=== PATIENT | female | born 1960 | race Caucasian/White ===

== ENCOUNTER 2023-03-16 09:39 | Emergency (ER) | payer OTHER, MEDICAID ==
[~2023-03-16] VITALS: Ht 165.1 cm; Wt 60.4 kg
[~2023-03-16 09:39] MED LIST: BENZ1LOZ74 PO; GUAI400T92 PO; NO HOME MEDS; TAM75C PO; ZOLP5TAB2 PO
[2023-03-16] MEDS ORDERED: EMPA25TA PO (11:06)
[2023-03-16] MEDS ORDERED: BUPR-344 PO (11:06)
[2023-03-16] MEDS ORDERED: ROSU20TA73 PO (11:06)
[2023-03-16] MEDS ORDERED: GLIM4TAB7 PO (11:06)
[2023-03-16] MEDS ORDERED: LISI20TA28 PO (11:06)
[2023-03-16 11:14] VITALS: BP 152/86; PULSE 68; RESP 18; TEMP 98; O2SAT 99
== END 2023-03-16 11:19 | disposition home or self-care (01) ==
LOC: ER 09:39
DX: R42 Dizziness and giddiness (principal); I63.9 Cerebral infarction, unspecified; I10 Essential (primary) hypertension; E11.9 Type 2 diabetes mellitus without complications; Z88.0 Allergy status to penicillin; Z88.2 Allergy status to sulfonamides; Z88.5 Allergy status to narcotic agent; Z79.899 Other long term (current) drug therapy
CPT/HCPCS: 99283

== ENCOUNTER 2023-04-03 09:53 | Emergency (ER) | payer OTHER, MEDICAID ==
[~2023-04-03] VITALS: Ht 165.1 cm; Wt 59.9 kg
[~2023-04-03 09:53] MED LIST changes: +BUPR-344 PO; +EMPA25TA PO; +GLIM4TAB7 PO; +LISI20TA28 PO; +ROSU20TA73 PO
[2023-04-03] MEDS ORDERED: CHOL500049 PO (12:12)
[2023-04-03 12:21] VITALS: BP 130/62; PULSE 69; RESP 15; TEMP 97.9; O2SAT 100
== END 2023-04-03 12:24 | disposition home or self-care (01) ==
LOC: ER 09:54
DX: J06.9 Acute upper respiratory infection, unspecified (principal); Z20.822 Contact with and (suspected) exposure to COVID-19; J02.8 Acute pharyngitis due to other specified organisms; I10 Essential (primary) hypertension; E11.9 Type 2 diabetes mellitus without complications; Z88.0 Allergy status to penicillin; Z88.2 Allergy status to sulfonamides; Z88.5 Allergy status to narcotic agent; Z79.899 Other long term (current) drug therapy; Z87.891 Personal history of nicotine dependence
CPT/HCPCS: 36415; 87502; 87503; 87811; 99284

== ENCOUNTER 2023-06-27 13:37 | Emergency (ER) | payer OTHER, MEDICAID ==
[~2023-06-27] VITALS: Ht 165.1 cm; Wt 61.0 kg
[~2023-06-27 13:37] MED LIST changes: +CHOL500049 PO; -GLIM4TAB7 PO; -LISI20TA28 PO
[2023-06-27 14:10] VITALS: TEMP 97.4
[2023-06-27 15:28] VITALS: BP 140/80; PULSE 86; RESP 16; O2SAT 98
== END 2023-06-27 15:37 | disposition home or self-care (01) ==
LOC: ER 13:38
DX: B34.9 Viral infection, unspecified (principal); Z59.01 Sheltered homelessness; I10 Essential (primary) hypertension; E11.9 Type 2 diabetes mellitus without complications; Z88.0 Allergy status to penicillin; Z88.2 Allergy status to sulfonamides; Z88.8 Allergy status to other drugs, medicaments and biological substances
CPT/HCPCS: 71045; 87502; 87503; 99284; C1758

== ENCOUNTER 2023-10-07 08:12 | Emergency (ER) | payer OTHER, MEDICAID ==
[~2023-10-07] VITALS: Ht 165.1 cm; Wt 65.2 kg
[2023-10-07 08:19] VITALS: TEMP 97.9
[2023-10-07] MEDS ORDERED: ROSU20TA73 PO (09:42)
[2023-10-07] MEDS ORDERED: MELA10TA2 PO (09:42)
[2023-10-07] MEDS ORDERED: BUPR-564 PO (09:42)
[2023-10-07 09:55] VITALS: BP 146/71; PULSE 61; RESP 13; O2SAT 98
== END 2023-10-07 09:58 | disposition home or self-care (01) ==
LOC: ER 08:13
DX: E78.00 Pure hypercholesterolemia, unspecified (principal); I10 Essential (primary) hypertension; E11.9 Type 2 diabetes mellitus without complications; Z76.0 Encounter for issue of repeat prescription; Z88.0 Allergy status to penicillin; Z88.2 Allergy status to sulfonamides; Z88.8 Allergy status to other drugs, medicaments and biological substances; Z79.899 Other long term (current) drug therapy; Z72.89 Other problems related to lifestyle; Z59.00 Homelessness unspecified; Z56.0 Unemployment, unspecified
CPT/HCPCS: 99284

== ENCOUNTER 2023-11-28 18:54 | Emergency (ER) | payer OTHER, MEDICAID ==
[~2023-11-28] VITALS: Ht 165.1 cm; Wt 65.9 kg
[~2023-11-28 18:54] MED LIST changes: +BUPR-564 PO; +MELA10TA2 PO
[2023-11-28 19:12] VITALS: BP 169/100; PULSE 77; TEMP 97.9; O2SAT 96
[2023-11-28] MEDS ORDERED: TRIA15CR61 TOP (20:49)
[2023-11-28] MEDS ORDERED: CEPH-585 PO (20:49)
[2023-11-28] MEDS ORDERED: PRED20TA PO (20:49)
[2023-11-28] MEDS: famotidine 20mg tablet PO ONE (21:03)
[2023-11-28] MEDS: diphenhydrAMINE 50 mg/ml inj IM ONE (21:03)
[2023-11-28] MEDS: dexamethasone sod phosphate 10mg/ml inj PO STA (21:03)
[2023-11-28 21:08] VITALS: RESP 18
== END 2023-11-28 21:09 | disposition home or self-care (01) ==
LOC: ER 18:55
DX: L50.9 Urticaria, unspecified (principal); B08.1 Molluscum contagiosum; I10 Essential (primary) hypertension; E11.9 Type 2 diabetes mellitus without complications; Z88.0 Allergy status to penicillin; Z88.2 Allergy status to sulfonamides; Z88.5 Allergy status to narcotic agent; Z79.899 Other long term (current) drug therapy
CPT/HCPCS: 96372; 99283; J1100; J1200

== ENCOUNTER 2024-01-22 07:20 | Emergency (ER) | payer OTHER, MEDICAID ==
[~2024-01-22] VITALS: Ht 165.1 cm; Wt 64.8 kg
[~2024-01-22 07:20] MED LIST changes: -ROSU20TA73 PO; +ROSU20TA98 PO
[2024-01-22 07:28] VITALS: BP 159/96; PULSE 73; TEMP 97.6; O2SAT 99
[2024-01-22 07:45] VITALS: RESP 14
[2024-01-22] MEDS: ketorolac trometh 30MG/ML vial 30 MG/ML VIAL IM ONE (07:45)
== END 2024-01-22 07:48 | disposition home or self-care (01) ==
LOC: ER 07:21
DX: M54.12 Radiculopathy, cervical region (principal); M62.838 Other muscle spasm; E11.9 Type 2 diabetes mellitus without complications; I10 Essential (primary) hypertension; Z88.0 Allergy status to penicillin; Z88.2 Allergy status to sulfonamides; Z88.5 Allergy status to narcotic agent
CPT/HCPCS: 96372; 99283; J1885

== ENCOUNTER 2024-06-19 10:01 | Emergency (ER) | payer MEDICARE, MEDICAID ==
[~2024-06-19] VITALS: Ht 165.1 cm; Wt 61.5 kg
[~2024-06-19 10:01] MED LIST changes: +BUPR-480 PO; -BUPR-564 PO; +ZOLP-678 PO; -ZOLP5TAB2 PO
[2024-06-19 10:07] VITALS: TEMP 97.8
--- NOTE | 2024-06-19 11:14 | Physician Documentation ---
History of Present Illness ~ Chief Complaint: Toe pain Stated Complaint: INGROWN TOENAILS Time Seen by MD: 10:49 Primary Medical Doctor: love naylor HPI Of right toenail pain for the last several months parent. He thinks that she has a ingrown nail. Tetanus witin 5 years: Yes Medication Reconciliation Allergies: Coded Allergies: Penicillins (Verified Allergy, Unknown, 06/19/24) Sulfa (Sulfonamide Antibiotics) (Verified Allergy, Unknown, 06/19/24) codeine (Verified Allergy, Unknown, 06/19/24) Scheduled Benzocaine/Menthol (Cepacol Sore Throat Lozenge), 1 TAB PO Q4H Bupropion HCl (Bupropion Xl), 1 TAB PO DAILY, (Reported) Bupropion XL (Bupropion Xl), 1 TAB PO DAILY Cholecalciferol (Vitamin D3) (Vitamin D3), 1 CAP PO Q7D Empagliflozin (Jardiance), 1 TAB PO DAILY Guaifenesin (Guaifenesin), 1 TAB PO Q8H Melatonin (Melatonin), 1 TAB PO HS Oseltamivir Phosphate (Tamiflu), 75 MG PO BID Rosuvastatin Calcium (Rosuvastatin Calcium), 1 TAB PO HS Rosuvastatin Calcium (Rosuvastatin Calcium), 1 TAB PO HS Scheduled PRN Zolpidem Tartrate (Ambien), 5 MG PO HS PRN for sleep Miscellaneous Medications Home Med List (No Home Medications), (Reported) Past Medical History Past Medical History: Hypertension, Diabetes Past Surgical History: no surgical history Alcohol Use: Occasionally Drug Use: none Lives In: Homeless Occupation: unemployed Review of Systems All Other Systems at this time: Reviewed and Negative ROS As stated above in the HPI, otherwise all systems are reviewed and negative. Physical Exam Vital Signs: Temperature: 97.8, Source: Temporal, Heart Rate: 85, Respiratory Rate: 18, BP: 155/85, Pulse Oximetry: 98, Weight: 61.500 Physical Exam General: Alert, no apparent distress. Respiratory: Lungs clear, no respiratory distress. Extremities: Normal range of motion, no deformity. Right foot notable toe fungus on four out of the five toenails. Neurologic: Oriented x4. Psychiatric: Normal mood and affect. Skin: Normal color, warm and dry. No edema, no ecchymosis. Progress Results/Orders Results/Orders Vital Signs 06/19/24 06/19/24 06/19/24 10:07 11:24 11:25 Temp 97.8 Pulse 85 85 85 Resp 18 15 15 B/P (MAP) 155/85 155/85 (108) 155/85 Pulse Ox 98 98 98 Medical Decision Making Findings Patient presents with a clinical indications for onychomycosis. This is her to follow up with a allergy physician for further treatment. Did not present with any acute emergencies at this time. Departure Disposition: 01 HOME / SELF CARE / HOMELESS Impression: Primary Impression: Onychomycosis Condition: Stable Additional Instructions: Recommend seeing a local allergy physician to have ureter toe fungus treated. Referrals: NO PRIMARY CARE PROVIDER (PCP) Signature Scribe Signature: d Attestation: The note accurately reflects work and decisions made by me.Tin Andres NP 06/19/24 17:56 TIN QUIROZ NP June 19, 2024 11:14
[2024-06-19 11:25] VITALS: BP 155/85; PULSE 85; RESP 15; O2SAT 98
== END 2024-06-19 11:31 | disposition home or self-care (01) ==
LOC: ER 10:02
DX: B35.1 Tinea unguium (principal); E11.9 Type 2 diabetes mellitus without complications; I10 Essential (primary) hypertension; Z88.0 Allergy status to penicillin; Z88.2 Allergy status to sulfonamides; Z88.5 Allergy status to narcotic agent; Z88.8 Allergy status to other drugs, medicaments and biological substances
CPT/HCPCS: 99281

== ENCOUNTER 2024-08-15 09:59 | Emergency (ER) | payer MEDICARE, MEDICAID ==
[~2024-08-15] VITALS: Ht 165.1 cm; Wt 56.6 kg
[2024-08-15 10:01] VITALS: BP 156/81; PULSE 77; RESP 18; TEMP 97; O2SAT 97
[2024-08-15] MEDS ORDERED: HYDR-3686 PO (10:17)
--- NOTE | 2024-08-15 10:18 | Physician Documentation ---
HPI ~ General Chief Complaint: Medication Request Stated Complaint: MED REFILL Time Seen by MD: 10:07 OK to notify your PCP?: Yes Primary Medical Doctor: love naylor Source: patient Mode of Arrival: POV Exam Limitations: no limitations History of Present Illness HPI Comments This is a 64-year-old female who comes in requesting something to help her sleep. She states she has only slept six days since arriving to [place] which was several months ago. Aside from her request for a sleep aid she has not no other complaints Medication Reconciliation Allergies: Coded Allergies: Penicillins (Verified Allergy, Unknown, 06/19/24) codeine (Verified Allergy, Unknown, 06/19/24) Scheduled Benzocaine/Menthol (Cepacol Sore Throat Lozenge), 1 TAB PO Q4H Bupropion HCl (Bupropion Xl), 1 TAB PO DAILY, (Reported) Bupropion XL (Bupropion Xl), 1 TAB PO DAILY Cholecalciferol (Vitamin D3) (Vitamin D3), 1 CAP PO Q7D Empagliflozin (Jardiance), 1 TAB PO DAILY Guaifenesin (Guaifenesin), 1 TAB PO Q8H Melatonin (Melatonin), 1 TAB PO HS Oseltamivir Phosphate (Tamiflu), 75 MG PO BID Rosuvastatin Calcium (Rosuvastatin Calcium), 1 TAB PO HS Rosuvastatin Calcium (Rosuvastatin Calcium), 1 TAB PO HS Scheduled PRN Zolpidem Tartrate (Ambien), 5 MG PO HS PRN for sleep Miscellaneous Medications Home Med List (No Home Medications), (Reported) Past Medical History Past Medical History: Hypertension, Diabetes Past Surgical History: no surgical history Alcohol Use: Occasionally Drug Use: none Lives In: Homeless Occupation: unemployed Physical Exam Physical Exam Vital Signs: Temperature: 97.0, Source: Temporal, Heart Rate: 77, Respiratory Rate: 18, BP: 156/81, Pulse Oximetry: 97, Weight: 56.600 Pulse Oximetry Reflects: adequate oxygenation General Appearance: alert, WD/WN, no apparent distress Respiratory: no respiratory distress Chest: no accessory muscle use Neurologic: oriented x4, quality control lab tech II-XII nml as tested, memory intact, oriented to time, oriented to person, oriented to place, oriented to events Motor / Sensory: no motor deficit Thought/Hallucinations: normal thought pattern, no apparent hallucination Affect: anxious Skin: normal color Progress Results/Orders Results/Orders Vital Signs 08/15/24 10:01 Temp 97.0 Pulse 77 Resp 18 B/P (MAP) 156/81 Pulse Ox 97 Medical Decision Making Findings I told the patient I will give her Atarax which you can take 50 mg p.o. q.h.s.. Otherwise follow up with the with the primary care physician to the [facility] for further outpatient care. Additional Comment Insomnia. Highly suspect illicit stimulant use. Psychiatric issues. Departure Disposition: HOME / SELF CARE / HOMELESS Impression: Primary Impression: Insomnia Condition: Stable Discharge Instructions: Insomnia Additional Instructions: That has medications as prescribed. Stay away from food, substances or drinks that have stimulants. Follow up with the [facility]. Return for any acute issues Referrals: NO PRIMARY CARE PROVIDER (PCP) Prescriptions Hydroxyzine Hcl* (Atarax*) 25 Mg Tablet 2 TAB PO HS for insomnia, #30 TAB Prov: ESEQUIEL GARCIA 08/15/24 Signature Scribe Signature: No scribe Attestation: The note accurately reflects work and decisions made by me.Esequiel WASHBURN 08/15/24 10:17 ESEQUIEL GARCIA Aug 15, 2024 10:18
[2024-08-16] MEDS ORDERED: EMPA25TA PO (15:12)
== END 2024-08-15 10:28 | disposition home or self-care (01) ==
LOC: ER 10:01
DX: G47.00 Insomnia, unspecified (principal); E11.9 Type 2 diabetes mellitus without complications; I10 Essential (primary) hypertension; Z88.0 Allergy status to penicillin; Z88.5 Allergy status to narcotic agent; Z88.8 Allergy status to other drugs, medicaments and biological substances
CPT/HCPCS: 99283

== ENCOUNTER 2024-08-16 13:16 | Emergency (ER) | payer MEDICARE, MEDICAID ==
[~2024-08-16] VITALS: Ht 165.1 cm; Wt 65.9 kg
[~2024-08-16 13:16] MED LIST changes: +HYDR-3686 PO
[2024-08-16 13:21] VITALS: BP 140/83; PULSE 72; RESP 16; TEMP 98.6; O2SAT 99
[2024-08-16] MEDS ORDERED: EMPA25TA PO (15:12)
--- NOTE | 2024-08-16 15:14 | Physician Documentation ---
HPI ~ General Chief Complaint: Medication Refill Stated Complaint: MED REQUEST Time Seen by MD: 14:06 Primary Medical Doctor: love naylor Source: patient Mode of Arrival: POV Exam Limitations: no limitations History of Present Illness HPI Comments 64-year-old female who is here for a refill of her gabapentin as well as her Jardiance. She states she is currently taking 20-30 mg of gabapentin. She then states she is taking Jardiance 50 mg. Upon pulling an external medication list patient is on Jardiance 25 mg however has not had this filled in a few months. There is no record of her getting gabapentin filled. She is currently living at a hotel in [place] waiting for her boyfriend to come pick her up and thus she states she does not want to establish care urine [place] but she states she has been here for months. Medication Reconciliation Allergies: Coded Allergies: Penicillins (Verified Allergy, Unknown, 06/19/24) codeine (Verified Allergy, Unknown, 06/19/24) Scheduled Benzocaine/Menthol (Cepacol Sore Throat Lozenge), 1 TAB PO Q4H Bupropion HCl (Bupropion Xl), 1 TAB PO DAILY, (Reported) Bupropion XL (Bupropion Xl), 1 TAB PO DAILY Cholecalciferol (Vitamin D3) (Vitamin D3), 1 CAP PO Q7D Empagliflozin (Jardiance), 1 TAB PO DAILY Empagliflozin (Jardiance), 1 TAB PO DAILY Guaifenesin (Guaifenesin), 1 TAB PO Q8H Hydroxyzine Hcl* (Atarax*), 2 TAB PO HS Melatonin (Melatonin), 1 TAB PO HS Oseltamivir Phosphate (Tamiflu), 75 MG PO BID Rosuvastatin Calcium (Rosuvastatin Calcium), 1 TAB PO HS Rosuvastatin Calcium (Rosuvastatin Calcium), 1 TAB PO HS Scheduled PRN Zolpidem Tartrate (Ambien), 5 MG PO HS PRN for sleep Miscellaneous Medications Home Med List (No Home Medications), (Reported) Past Medical History Past Medical History: Hypertension, Diabetes Past Surgical History: no surgical history Alcohol Use: Occasionally Drug Use: none Lives In: Homeless Occupation: unemployed Review of Systems All Other Systems at this time: Reviewed and Negative Physical Exam Physical Exam Vital Signs: Temperature: 98.6, Source: Oral, Heart Rate: 72, Respiratory Rate: 16, BP: 140/83, Pulse Oximetry: 99, Weight: 65.910 Physical Exam General Appearance: Alert, WD/WN. NAD. HEENT: NCAT, PERRL, EOMI. Neck: Supple, trachea midline. Cardiovascular: RRR. No m/r/g. Lungs: CTAB. Breathing unlabored Extremities: Normal inspection. No edema. Skin: Warm/dry, normal color Neurological: Alert and oriented x4, normal gait. Psychiatric: Affect congruent with mood. Progress Results/Orders Results/Orders Vital Signs 08/16/24 13:21 Temp 98.6 Pulse 72 Resp 16 B/P (MAP) 140/83 Pulse Ox 99 Medical Decision Making Differential Dx:Considerations: Include: Adverse circumstances, Economic, Psychosocial, Medical services unavail., Medication refill, Medication non- compliance, Other Departure Time of Disposition: 15:14 Disposition: HOME / SELF CARE / HOMELESS Impression: Primary Impression: Diabetes Qualified Codes: E11.9 - Type 2 diabetes mellitus without complications Additional Impression: General medical exam Condition: Stable Discharge Instructions: Medicine Refill at the Emergency Department Additional Instructions: THERE WAS ZERO RECORD OF GABAPENTIN WHEN I PULLED MEDICATIONS FROM PHARMACY I REFILLED THE JARDIANCE BUT REFILLED AT 25[facility] IT DOES NOT COME IN 50MG WHICH IS WHAT YOU HAD ORIGINALLY ASKED FOR RE: YOUR GABAPENTIN CONSIDERING THERE WAS ZERO RECORD OF IT AND YOU HAD NO IDEA OF THE DOSAGE THAT YOU ARE TAKING I DID NOT REFILL THIS YOU CAN BRING COPY OF YOUR MEDICATION LIST FROM YOUR PHARMACY AND IF IT IS IN THERE AND OUR LIST IS WRONG, YOU CAN BRING LIST TO US AND I WILL REFILL YOU NEED TO ESTABLISH WITH A PCP Referrals: NO PRIMARY CARE PROVIDER (PCP) Prescriptions Empagliflozin (Jardiance) 25 Mg Tablet 1 TAB PO DAILY for 30 Days, #30 TAB 0 Refills Prov: MICAH TEJEDA 08/16/24 Education Educated: Patient Educated regarding: diagnosis, treatment, need for follow up Signature Scribe Signature: x Attestation: MICAH Vega Aug 16, 2024 15:14
== END 2024-08-16 15:22 | disposition home or self-care (01) ==
LOC: ER 13:16
DX: E11.9 Type 2 diabetes mellitus without complications (principal); I10 Essential (primary) hypertension; Z88.0 Allergy status to penicillin; Z88.5 Allergy status to narcotic agent; Z88.8 Allergy status to other drugs, medicaments and biological substances
CPT/HCPCS: 99281

== ENCOUNTER 2024-08-18 10:37 | Emergency (ER) | payer MEDICARE, MEDICAID ==
[~2024-08-18] VITALS: Ht 162.6 cm; Wt 65.0 kg
[2024-08-18 10:40] VITALS: BP 132/81; PULSE 70; RESP 16; TEMP 97.5; O2SAT 99
--- NOTE | 2024-08-18 11:23 | Physician Documentation ---
HPI ~ General Chief Complaint: Medication Request Stated Complaint: MED REQUEST Time Seen by MD: 10:55 OK to notify your PCP?: Yes Primary Medical Doctor: love naylor Source: patient Mode of Arrival: POV Exam Limitations: no limitations History of Present Illness HPI Comments 64-year-old female who is here requesting another refill of her medications. She has not taken these medications in months. Patient was seen two days ago and got a refill of one of her medications which was sent to the pharmacy. She returned to yesterday stating that the pharmacy still had not filled it and requested that I can another prescription. She states today that she would like me to send the same prescription again and also needs a refill of her medication that starts with a G. Patient states she has no PCP here and is not planning on getting one as she states "I am waiting for my boyfriend to come and pick me up and I am not staying here." Patient reports she has not spoken to her boyfriend in awhile and is not sure when he is coming. States she has already been here for weeks. She does not want to have her medical transferred to [facility] since she does not want to stay here. She has no concerns or complaints. Appetite good. No cp, sob, weight changes, abdominal pain, nausea, polyuria, polydipsia. Medication Reconciliation Allergies: Coded Allergies: Penicillins (Verified Allergy, Unknown, 06/19/24) codeine (Verified Allergy, Unknown, 06/19/24) Scheduled Benzocaine/Menthol (Cepacol Sore Throat Lozenge), 1 TAB PO Q4H Bupropion HCl (Bupropion Xl), 1 TAB PO DAILY, (Reported) Bupropion XL (Bupropion Xl), 1 TAB PO DAILY Cholecalciferol (Vitamin D3) (Vitamin D3), 1 CAP PO Q7D Empagliflozin (Jardiance), 1 TAB PO DAILY Empagliflozin (Jardiance), 1 TAB PO DAILY Guaifenesin (Guaifenesin), 1 TAB PO Q8H Hydroxyzine Hcl* (Atarax*), 2 TAB PO HS Melatonin (Melatonin), 1 TAB PO HS Oseltamivir Phosphate (Tamiflu), 75 MG PO BID Rosuvastatin Calcium (Rosuvastatin Calcium), 1 TAB PO HS Rosuvastatin Calcium (Rosuvastatin Calcium), 1 TAB PO HS Scheduled PRN Zolpidem Tartrate (Ambien), 5 MG PO HS PRN for sleep Miscellaneous Medications Home Med List (No Home Medications), (Reported) Past Medical History Past Medical History: Hypertension, Diabetes Past Surgical History: no surgical history Alcohol Use: Occasionally Drug Use: none Lives In: Homeless Occupation: unemployed Review of Systems All Other Systems at this time: Reviewed and Negative Physical Exam Physical Exam Vital Signs: Temperature: 97.5, Source: Temporal, Heart Rate: 70, Respiratory Rate: 16, BP: 132/81, Pulse Oximetry: 99, Weight: 65.000 Oxygen Flow Rate: 0 Physical Exam General Appearance: Alert, WD/WN. NAD. HEENT: NCAT, PERRL, EOMI. Neck: Supple, trachea midline. Cardiovascular: RRR. No m/r/g. Lungs: CTAB. Breathing unlabored Extremities: Normal inspection. No edema. Skin: Warm/dry, normal color Neurological: Alert and oriented x4, normal gait. Psychiatric: Affect congruent with mood. Progress Results/Orders Results/Orders Vital Signs 08/18/24 10:40 Temp 97.5 Pulse 70 Resp 16 B/P (MAP) 132/81 Pulse Ox 99 O2 Flow Rate 0 Medical Decision Making Differential Dx:Considerations: Include: Adverse circumstances, Economic, Psychosocial, Medical services unavail., Medication refill, Medication non- compliance Departure Time of Disposition: 11:20 Disposition: HOME / SELF CARE / HOMELESS Impression: Primary Impression: General medical exam Condition: Stable Discharge Instructions: Medical Screening Exam Additional Instructions: PATIENT LEFT WITHOUT PAPERWORK IT APPEARS THAT SINCE PATIENT DOES NOT WANT TO HAVE HER MEDICAL TRANSFERRED TO [facility] THAT THIS MAY MEAN SHE CAN NOT GET HER PRESCRIPTIONS REFILLED AT THE PHARMACY AND MAY BE WHY SHE HAS NOT BEEN ABLE TO REHEAT FURNACE OPERATOR THE PRESCRIPTIONS THAT I SENT TWO DAYS AGO. PATIENT HAD NO CONCERNS OTHER THAN REQUESTING PRESCRIPTIONS AND THESE PRESCRIPTIONS HAVE NOT BEEN FILLED SINCE APRIL WHEN I OBTAINED OUTSIDE PHARMACY RECORDS WHICH PATIENT CONCURRED WITH. IT IS APPROPRIATE AT THIS TIME TO WAIT TO ESTABLISH WITH A PCP WHO CAN REFILL AND MONITOR PATIENT THERE IS NO ACUTE NEED OR EMERGENCY OF TODAY Referrals: NO PRIMARY CARE PROVIDER (PCP) Education Educated: Patient Educated regarding: diagnosis, treatment, need for follow up Signature Scribe Signature: x Attestation: MICAH Vega Aug 18, 2024 11:23
== END 2024-08-18 11:04 | disposition left against medical advice (07) ==
LOC: ER 10:38
DX: I10 Essential (primary) hypertension (principal); E11.9 Type 2 diabetes mellitus without complications; Z88.0 Allergy status to penicillin; Z88.5 Allergy status to narcotic agent; Z79.899 Other long term (current) drug therapy; Z56.0 Unemployment, unspecified; Z59.00 Homelessness unspecified; Z72.89 Other problems related to lifestyle
CPT/HCPCS: 99281